=== PATIENT | male | born 2000 | race African-American/Black ===

== ENCOUNTER 2021-05-30 12:45 | Emergency (ER) | payer MEDICAID, OTHER ==
[~2021-05-30] VITALS: Ht 185.4 cm; Wt 73.0 kg
[~2021-05-30 12:45] MED LIST: NONE REPORTED
[2021-05-30 13:01] VITALS: BP 142/76
[2021-05-30] MEDS ORDERED: KETOROLAC 30MG/ML VIAL IV STA (13:01)
[2021-05-30] MEDS ORDERED: ONDANSETRON HCL 4MG/2ML INJ IV STA (13:01)
[2021-05-30] MEDS ORDERED: SODIUM CHLORIDE 0.9% 1,000 ML IV ONE (13:15)
[2021-05-30 14:55] LABS: BASOPHILS % 0.2 % (0.0-2.0); EOSINOPHILS % 0.3 % (0.0-5.0); HEMATOCRIT. 44.5 % (42.0-52.0); HEMOGLOBIN. 15.2 g/dL (14.0-18.0); LYMPHOCYTES % 12.5 % (20.0-50.0); MEAN CORPUSCULAR HEMOGLOBIN 28.2 pg (28.0-32.0); MEAN CORPUSCULAR VOLUME 82.4 fL (80.0-94.0); MEAN PLATELET VOLUME 8.1 fl (7.4-10.4); MONOCYTES % 6.5 % (2.0-8.0); NEUTROPHILS % 80.5 % (40.0-76.0); PLATELET 222 x1000/uL (130-400); RED CELL DISTRIBUTION WIDTH 12.6 % (11.6-14.6)
[2021-05-30 15:00] LABS: CHLORIDE 108 mEq/L (98-107)
[2021-05-30 15:46] LABS: CLARITY URINE CLEAR (CLEAR); COLOR URINE YELLOW (YELLOW); KETONES URINE 1+ (NEGATIVE); LEUKOCYTE ESTERASE URINE 1+ (NEGATIVE); NITRITE URINE NEGATIVE (NEGATIVE); OCCULT BLOOD URINE TRACE (NEGATIVE); PROTEIN URINE NEGATIVE (NEGATIVE); SPECIFIC GRAVITY URINE 1.025 (1.005-1.030)
[2021-05-30] MEDS ORDERED: HYDR-4001 MT (16:31)
[2021-05-30] MEDS ORDERED: TAMS-11 MT (16:31)
[2021-05-30] MEDS ORDERED: IBUP-2028 MT (16:31)
== END 2021-05-30 16:53 | disposition home or self-care (01) ==
LOC: ER 12:57
DX: N20.0 Calculus of kidney (principal); N23 Unspecified renal colic
CPT/HCPCS: 36415; 74176; 76870; 80053; 81003; 83690; 85025; 93976; 96361; 96374; 96375; 99285; J1885; J2405; J7030